=== PATIENT | female | born 1985 | race Caucasian/White ===

== ENCOUNTER 2016-11-14 12:04 | Emergency (ER) | payer MEDICAID ==
[2016-11-14 12:11] VITALS: BP 145/82; PULSE 81; RESP 16; TEMP 99; O2SAT 96
--- NOTE | 2016-11-14 12:21 | EDPHY ---
H & P Time Seen by Provider: 11/14/16 12:12 HPI/ROS: CHIEF COMPLAINT: Odontalgia HISTORY OF PRESENT ILLNESS: 31-year-old immunocompetent female with remote history of cracked tooth 3. Complaining of 2 days of pain at same tooth. Appoint with dentist tomorrow. Did Not sleep well secondary to pain. No new trauma. No facial swelling. No facial asymmetry. No fetid odor or foul taste in mouth. No trismus no drooling. No floor of mouth pain. PHYSICAL EXAM (Prior to examination, patient consented to physical exam, hands were washed and my usual and customary physical exam procedures followed) 1) GENERAL: Well-developed, well-nourished, alert and oriented. Appears uncomfortable, answering questions appropriately 2) HEAD: Normocephalic 3) HEENT: sclera anicteric. Symmetrical faces. Nasolabial folds are symmetrical. No trismus no drooling. Floor of mouth is soft no evidence of Wicho's angina. Submental and submandibular spaces are soft , no tenderness. Tooth 3 is cracked and is tender to percussion. There is no evidence of abscess. 4) LUNGS: Breathing comfortably. 5) SKIN: no facial lesions Smoking Status: Former smoker Constitutional: Initial Vital Signs Temperature (C) 37.2 C 11/14/16 12:06 Heart Rate 81 11/14/16 12:06 Respiratory Rate 16 11/14/16 12:06 Blood Pressure 145/82 H 11/14/16 12:06 O2 Sat (%) 96 11/14/16 12:06 O2 Delivery Mode Room Air Allergies/Adverse Reactions: Penicillins Allergy (Mild, Verified 11/14/16 12:11) Rash Home Medications: Medication Instructions Recorded Clindamycin HCl [Clindamycin] 300 mg PO TID 7 Days 11/14/16 oxyCODONE/APAP 5/325 [Percocet 1 tab PO Q6 #10 tab 11/14/16 5/325] ED Images - Head Mouth: 1 - Cracked MDM/Departure - MDM Procedures: Dental nerve block 0.5% bupivacaine placed by myself. Patient tolerated procedure well. . ED Course/Re-evaluation: This patient has no evidence of Wicho's angina, no evidence of abscess, no evidence of facial infection. She does have a cracked tooth which is tender to percussion. She has an appoint with her dentist tomorrow. She agreed to dental nerve block was placed by myself resulting in pain relief. She has prescribed clindamycin as she is penicillin allergic and analgesia and recommend she keep her appointment. Usual and customary odontogenic precautions and instructions provided - Depart Disposition: Home, Routine, Self-Care Clinical Impression: Cracked tooth Condition: Good Instructions: Toothache (ED) Additional Instructions: Return to the ER immediately if you cannot swallow, have drooling, fevers, neck stiffness, cannot open your jaw, or any other symptoms that concern you. Prescriptions: Clindamycin HCl [Clindamycin] 300 mg PO TID 7 Days oxyCODONE/APAP 5/325 [Percocet 5/325] 1 tab PO Q6 #10 tab Referrals: Keep, your dentist appointment tomorrow [Other] - As per Instructions
== END 2016-11-14 12:31 | disposition home or self-care (01) ==
PROC: 3E0X3CZ (ICD-10-PCS; principal; 2016-11-14)
DX: K03.81 Cracked tooth (principal); Z87.891 Personal history of nicotine dependence

== ENCOUNTER 2017-03-15 19:48 | Emergency (ER) | payer MEDICAID ==
[2017-03-15 19:53] VITALS: TEMP 98.1; O2SAT 96
--- NOTE | 2017-03-15 20:51 | CPEKG ---
Heart Rate: 74 RR Interval: 811 P-R Interval: 156 QRSD Interval: 108 QT Interval: 384 QTC Interval: 426 P [place]: 68 QRS [place]: 49 T [place]: 38 EKG Severity - NORMAL ECG - EKG Impression: SINUS RHYTHM Electronically Signed By: Fritz Iglesias 15-Mar-2017 22:41:08
[2017-03-15] MEDS ORDERED: NS 1,000 ML IV ONE (21:35)
[2017-03-15] MEDS ORDERED: KETOROLAC 30 MG/1 ML SDV IVP ONE (21:35)
[2017-03-15 21:45] LABS: ANION GAP 11 mEq/L (8-16); CALCIUM 9.6 mg/dL (8.5-10.4); CARBON DIOXIDE 22 mEq/l (22-31); CHLORIDE 107 mEq/L (97-110); CREATININE 0.7 mg/dL (0.6-1.0); GLOMERULAR FILTRATION RATE > 60; GLUCOSE 88 mg/dL (70-100); SODIUM 140 mEq/L (134-144)
[2017-03-15 21:51] LABS: % IMMATURE GRANULYOCYTES 0.3 % (0.0-1.1); ABSOLUTE IMMATURE GRANULOCYTES 0.03 10^3/uL (0.00-0.10); ADD DIFF? NO; ADD MORPH? NO; ADD SCAN? NO; ATYPICAL LYMPHOCYTE FLAG 10 (0-99); FRAGMENT RBC FLAG 0 (0-99); HEMATOCRIT 35.7 % (38.0-47.0); HEMOGLOBIN 11.7 g/dL (12.6-16.3); LEFT SHIFT FLG 0 (0-99); LIPEMIA HEMOLYSIS FLAG 80 (0-99); MEAN CELL HEMOGLOBIN 28.7 pg (27.9-34.1); MEAN CELL HEMOGLOBIN CONCENTR. 32.8 g/dL (32.4-36.7); MEAN CELL VOLUME 87.5 fL (81.5-99.8); PLATELET CLUMPS FLAG 10 (0-99); PLATELET COUNT 302 10^3/uL (150-400); RED BLOOD CELL COUNT 4.08 10^6/uL (4.18-5.33); RED CELL DISTRIBUTION WIDTH 13.1 % (11.5-15.2)
--- NOTE | 2017-03-15 23:25 | EDPHY ---
H & P Time Seen by Provider: 03/15/17 20:34 HPI/ROS: CHIEF COMPLAINT: Chest pain HISTORY OF PRESENT ILLNESS: 31-year-old female presents to the emergency department with chest pain that began 3 or 4 days ago. She denies any known trauma or injury. She was having pain in the left side of her chest as well as in her left arm. She notes that she has had pain in her left arm several weeks ago. She denies feeling short of breath. Specifically she denies pleuritic chest pain. No calf pain or swelling. Former smoker. No family history of coronary artery disease. REVIEW OF SYSTEMS: Constitutional: No fever, no chills. Eyes: No double or blurry vision. ENT: No sore throat. Respiratory: No cough, no shortness of breath. Cardiac: As above Gastrointestinal: No abdominal pain, vomiting or diarrhea. Genitourinary: No dysuria. Musculoskeletal: No neck or back pain. Skin: No rashes. Neurological: No headache. Past Medical/Surgical History: Negative Social History: Smoking Status: Former smoker Physical Exam: General Appearance: Alert, no distress. Vital signs are stable. Eyes: Pupils equal and round. Extraocular motions are all intact. ENT: Mouth: Mucous membranes moist. Respiratory: No wheezing, rhonchi, or rales, lungs are clear to auscultation. Patient has reproducible pain with palpation to the left anterior chest just lateral to the sternum. No palpable crepitus or other bony abnormality. Cardiovascular: Regular rate and rhythm. Gastrointestinal: Abdomen is soft and nontender, no masses, no rebound or guarding, bowel sounds normal. No CVA tenderness bilaterally. Neurological: Alert and oriented x 3, cranial nerves II through XII grossly intact Skin: Warm and dry, no rashes. Musculoskeletal: Nontender to palpate along the cervical, thoracic or lumbar spine. Neck is supple. Extremities: Full range of motion and no peripheral edema. Psychiatric: Patient is oriented X 3, there is no agitation. Constitutional: Initial Vital Signs Temperature (C) 36.7 C 03/15/17 19:49 Heart Rate 96 03/15/17 19:49 Respiratory Rate 18 03/15/17 19:49 Blood Pressure 157/98 H 03/15/17 19:49 O2 Sat (%) 96 03/15/17 19:49 O2 Delivery Mode Room Air Allergies/Adverse Reactions: Penicillins Allergy (Mild, Verified 11/14/16 12:11) Rash Medical Decision Making - Diagnostics Imaging Results: Imaging Impressions Chest X-Ray 03/15/17 22:46 Impression: Clear lungs. No acute process. Imaging: I viewed and interpreted images myself ED Course/Re-evaluation: 31-year-old female presents to the emergency department with reproducible left- sided chest wall pain. Clinically I think likely she has costochondritis. She was given 15 mg of Toradol IV as well as IV normal saline. Laboratory studies are unremarkable. EKG was within normal limits. Chest x-ray was unremarkable. Perc score is 0. I do not think this patient has pulmonary embolism. D-dimer was negative. Patient was given primary care referral. She was instructed to return to the emergency department if she developed any recurring chest pain or if she felt short of breath or worse in any way. EKG reveals normal sinus rhythm. This is reviewed with Dr. Iglesias. Differential Diagnosis: Chest pain including but not limited to costochondritis, myocardial ischemia, pulmonary embolus, chest wall pain, pleural inflammation and pulmonary infectious causes. - Data Points Laboratory Results: Laboratory Results 03/15/17 21:03 03/15/17 21:03 03/15/17 03/15/17 03/15/17 21:03 21:03 21:03 WBC RBC Hgb Hct MCV MCH MCHC RDW Plt Count MPV Neut % (Auto) Lymph % (Auto) Blount % (Auto) Eos % (Auto) Baso % (Auto) Nucleat RBC Rel Count Absolute Neuts (auto) Absolute Lymphs (auto) Absolute Monos (auto) Absolute Eos (auto) Absolute Basos (auto) Absolute Nucleated RBC Immature Gran % Immature Gran # D-Dimer 0.48 ug/mLFEU ug/mLFEU (0.00-0.50) Sodium 140 mEq/L mEq/L (134-144) Potassium 4.0 mEq/L mEq/L (3.5-5.2) Chloride 107 mEq/L mEq/L (97-110) Carbon Dioxide 22 mEq/l mEq/l (22-31) Anion Gap 11 mEq/L mEq/L (8-16) BUN 10 mg/dL mg/dL (7-23) Creatinine 0.7 mg/dL mg/dL (0.6-1.0) Estimated GFR > 60 Glucose 88 mg/dL mg/dL (70-100) Calcium 9.6 mg/dL mg/dL (8.5-10.4) Beta HCG, Qual NEGATIVE 03/15/17 21:03 WBC 9.65 10^3/uL H 10^3/uL (3.80-9.50) RBC 4.08 10^6/uL L 10^6/uL (4.18-5.33) Hgb 11.7 g/dL L g/dL (12.6-16.3) Hct 35.7 % L % (38.0-47.0) MCV 87.5 fL fL (81.5-99.8) MCH 28.7 pg pg (27.9-34.1) MCHC 32.8 g/dL g/dL (32.4-36.7) RDW 13.1 % % (11.5-15.2) Plt Count 302 10^3/uL 10^3/uL (150-400) MPV 11.0 fL fL (8.7-11.7) Neut % (Auto) 61.6 % % (39.3-74.2) Lymph % (Auto) 29.2 % % (15.0-45.0) Blount % (Auto) 6.0 % % (4.5-13.0) Eos % (Auto) 2.3 % % (0.6-7.6) Baso % (Auto) 0.6 % % (0.3-1.7) Nucleat RBC Rel Count 0.0 % % (0.0-0.2) Absolute Neuts (auto) 5.94 10^3/uL 10^3/uL (1.70-6.50) Absolute Lymphs (auto) 2.82 10^3/uL 10^3/uL (1.00-3.00) Absolute Monos (auto) 0.58 10^3/uL 10^3/uL (0.30-0.80) Absolute Eos (auto) 0.22 10^3/uL 10^3/uL (0.03-0.40) Absolute Basos (auto) 0.06 10^3/uL 10^3/uL (0.02-0.10) Absolute Nucleated RBC 0.00 10^3/uL 10^3/uL (0-0.01) Immature Gran % 0.3 % % (0.0-1.1) Immature Gran # 0.03 10^3/uL 10^3/uL (0.00-0.10) D-Dimer Sodium Potassium Chloride Carbon Dioxide Anion Gap BUN Creatinine Estimated GFR Glucose Calcium Beta HCG, Qual Medications Given: Discontinued Medications Sodium Chloride (Ns) 1,000 mls @ 0 mls/hr IV ONCE ONE PRN Reason: Wide Open Stop: 03/15/17 21:36 Last Admin: 03/15/17 21:44 Dose: 1,000 mls Ketorolac Tromethamine (Toradol) 15 mg IVP EDNOW ONE Stop: 03/15/17 21:36 Last Admin: 03/15/17 21:44 Dose: 15 mg Departure - Departure Disposition: Home, Routine, Self-Care Clinical Impression: Costochondritis Chest pain Qualifiers: Chest pain type: unspecified Qualified Code(s): R07.9 - Chest pain, unspecified Condition: Good Instructions: Chest Pain (ED), Costochondritis (ED) Additional Instructions: Return if you developed recurring chest pain, shortness of breath, or if you feel worse in any way. 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
[2017-03-16 01:01] VITALS: BP 122/64; RESP 16
[2017-03-16 01:02] VITALS: PULSE 85
== END 2017-03-16 00:30 | disposition home or self-care (01) ==
DX: M94.0 Chondrocostal junction syndrome [Tietze] (principal); Z87.891 Personal history of nicotine dependence
CPT/HCPCS: 96374; J1885

== ENCOUNTER 2017-09-17 17:06 | Emergency (ER) | payer MEDICAID ==
[2017-09-17 17:22] VITALS: PULSE 98
[2017-09-17] MEDS ORDERED: diphenhydrAMINE 25 MG CAP PO ONE (17:23)
[2017-09-17] MEDS ORDERED: predniSONE 20 MG TAB PO ONE (18:00)
[2017-09-17] MEDS ORDERED: AZITHROMYCIN 250 MG TAB PO ONE (18:00)
--- NOTE | 2017-09-17 18:03 | EDPHY ---
H & P Stated Complaint: ? allergy to pcn started on amox for strep throat/rash to hands/arms Time Seen by Provider: 09/17/17 17:45 HPI/ROS: Chief complaint: Possible allergic reaction to amoxicillin History of present illness: This is a 32-year-old female who presents to the emergency department for evaluation of a possible allergic reaction to amoxicillin. Patient reports she was diagnosed with strep throat few days ago. Her children have strep throat as well. She has a history of a suspected penicillin allergy, thought to be mild. She was started on amoxicillin. She started developed a red rash to her hands. She is concerned this is secondary amoxicillin. She denies other associated signs or symptoms including no swelling of the throat, no difficulty breathing. Review of systems: A 10 point review of systems was obtained and other than described above was negative - Personal History LMP (Females 10-55): 8-14 Days Ago Current Tetanus/Diphtheria Vaccine: Yes - Medical/Surgical History Hx Asthma: No Hx Chronic Respiratory Disease: No Hx Diabetes: No Hx Cardiac Disease: No Hx Renal Disease: No Hx Cirrhosis: No Hx Alcoholism: No Hx HIV/AIDS: No Hx Splenectomy or Spleen Trauma: No Other PMH: wisdom teeth. - Social History Smoking Status: Former smoker - Physical Exam Exam: General Appearance: Alert and no distress. Eyes: Pupils equal and round no injection. ENT: Tympanic membranes, external auditory canals, external ears and surrounding soft tissue including over the mastoids are unremarkable. Nasopharynx is not injected. There is no rhinorrhea. Oropharynx is not injected. There is mild edema. There is mild exudate. There is no asymmetry. The uvula is midline. No elevation of the tongue. There is no hoarseness, no drooling, no trismus, no stridor. Respiratory: Chest is non tender, lungs are clear to auscultation. Cardiac: regular rate and rhythm Musculoskeletal: Neck is supple and non tender. Extremities have full range of motion and are non tender. Skin: Erythematous rash to the hands and upper extremities. No pustules, no vesicles, no petechiae. Constitutional: Initial Vital Signs Temperature (C) 36.9 C 09/17/17 17:19 Heart Rate 98 09/17/17 17:19 Respiratory Rate 20 09/17/17 17:19 Blood Pressure 143/91 H 01/09/18 17:19 O2 Sat (%) 98 09/17/17 17:19 O2 Delivery Mode Room Air Allergies/Adverse Reactions: Penicillins Allergy (Mild, Verified 09/17/17 17:18) Rash Home Medications: Medication Instructions Recorded AMOXICILLIN 09/17/17 Azithromycin 250 mg PO DAILY 4 Days tablet 09/17/17 predniSONE 40 mg PO DAILY 3 Days tab 09/17/17 Medical Decision Making ED Course/Re-evaluation: Patient seen under the supervision of my secondary supervising physician Dr. Alex Qiu. Patient presents to the emergency department for rash after starting on amoxicillin for strep throat. No evidence of significant toxicity. I will discontinue the amoxicillin and start azithromycin. She will be placed on prednisone for the rash which should also help to sore throat. She is to follow up with her primary care doctor for recheck. Return precautions given. Differential Diagnosis: Included but not limited to allergic reaction, contact dermatitis, scarlet fever - Data Points Medications Given: Discontinued Medications Azithromycin (Zithromax) 500 mg PO EDNOW ONE PRN Reason: Protocol Stop: 09/17/17 18:01 Last Admin: 09/17/17 18:34 Dose: 500 mg Diphenhydramine HCl (Benadryl) 50 mg PO EDNOW ONE Stop: 09/17/17 17:24 Last Admin: 09/17/17 17:25 Dose: 50 mg Prednisone (Prednisone) 60 mg PO EDNOW ONE Stop: 09/17/17 18:01 Last Admin: 09/17/17 18:33 Dose: 60 mg Departure - Departure Disposition: Home, Routine, Self-Care Clinical Impression: Strep throat, Rash Condition: Good Instructions: Strep Throat (ED), Acute Rash (ED) Additional Instructions: Follow-up with a primary care doctor for continued evaluation and care Discontinue the amoxicillin Take the azithromycin as prescribed until finished even feeling better If symptoms worsen or new symptoms develop return to the emergency room for recheck Referrals: NONE *PRIMARY CARE P,. [Primary Care Provider] - As per Instructions [facility],. [Clinic] - As per Instructions Prescriptions: Azithromycin 250 mg PO DAILY 4 Days tablet predniSONE 40 mg PO DAILY 3 Days tab
[2017-09-17 19:01] VITALS: BP 115/88; RESP 18; TEMP 98.1; O2SAT 99
== END 2017-09-17 19:01 | disposition home or self-care (01) ==
DX: R21 Rash and other nonspecific skin eruption (principal); J02.0 Streptococcal pharyngitis; Z87.891 Personal history of nicotine dependence
CPT/HCPCS: J7512

== ENCOUNTER 2019-02-21 23:57 | Emergency (ER) | payer MEDICAID | END 2019-02-22 02:14 | disposition home or self-care (01) ==